=== PATIENT | male | born 1950 | race Hispanic/Latino ===

== ENCOUNTER 2019-01-10 16:13 | Emergency (ER) | payer OTHER, SELFPAY ==
[2019-01-10] MEDS ORDERED: Adacel (T-DAP) 0.5 ML SYRINGE ONE (16:31)
--- NOTE | 2019-01-10 21:58 | RAD ---
RIGHT FOOT THREE VIEWS: 01/10/19 No acute fracture or periosteal reaction was demonstrated. There is some irregularity of the lateral sesamoid of the first MTP joint that is more likely due to old trauma than new. Correlate with clinic al exam. Some soft tissue swelling is suggested dorsally. The underlying bones all appeared intact. IMPRESSION: No acute findings. POS: HOME
== END 2019-01-10 16:46 | disposition home or self-care (01) ==
LOC: BURERS 16:13
DX: S90.31XA Contusion of right foot, initial encounter (principal); S00.81XA Abrasion of other part of head, initial encounter; M10.9 Gout, unspecified; E78.00 Pure hypercholesterolemia, unspecified; Z23 Encounter for immunization; Z79.899 Other long term (current) drug therapy; W22.8XXA Striking against or struck by other objects, initial encounter
CPT/HCPCS: 90471; 90715